=== PATIENT | female | born 1995 | race American Indian/Alaskan Native ===

== ENCOUNTER 2018-05-16 06:44 | Inpatient (IN) | payer MEDICAID ==
[2018-05-16 06:32] VITALS: BMI 33.6
[~2018-05-16 06:44] MED LIST: Lactated Ringer's 1,000 ML IV ONE
[2018-05-16 06:59] LABS: MEAN CELL VOLUME 78.6 fL (81.0-99.0); MEAN CORPUSCULAR HEMOGLOBIN 26.1 pg (27.0-31.0); MEAN CORPUSCULAR HGB CONC 33.2 g/dL (33.0-37.0); MEAN PLATELET VOLUME 8.9 fL (7.2-11.7); RBC 3.84 Mil/uL (3.80-5.20); RED CELL DISTRIBUTION WIDTH 13.9 % (11.5-14.5)
[2018-05-16] MEDS ORDERED: Sodium Citrate/Citric Acid 15 ml Sol PO ONE (07:20)
[2018-05-16] MEDS ORDERED: Morphine 1 mg/ml preservative-free Inj(Duramorph) ONE (07:22)
[2018-05-16 07:30] LABS: ALBUMIN 3.2 g/dL (3.5-5.0); ALT/SGPT 18 U/L (9-52); AST/SGOT 17 U/L (14-36); BLOOD UREA NITROGEN 3 mg/dL (7-17); CALCIUM 8.6 mg/dl (8.6-10.4); GFR NON-AFRICAN AMERICAN > 60
[2018-05-16] MEDS ORDERED: Lactated Ringer's 1,000 ML IV SCH (07:30)
[2018-05-16 07:35] LABS: SQUAMOUS EPITHIAL 2 /hpf (0-5); URINE BACTERIA MANY (<OCC); URINE BILIRUBIN NEGATIVE (NEGATIVE); URINE BLOOD NEGATIVE (NEGATIVE); URINE CLARITY Hazy (Clear); URINE COLOR Yellow (YELLOW); URINE GLUCOSE (UA) NORMAL (Normal); URINE LEUKOCYTE ESTERASE 2+ Leu/uL (Negative); URINE PROTEIN NEGATIVE (NEGATIVE); URINE UROBILINOGEN NORMAL mg/dL (0.2-1.0)
--- NOTE | 2018-05-16 07:37 | OBADHP ---
Datetime: 05/16/2018 07:22 IP Chief Complaint Other: H/O Herpes vaginalis Admit Comment, IP Provider: This is a private patient of Dr. Mayen 22 y.o. LMP 08/16/17, SALIMA 05/23/18 EGA 39 weeks for elective C/S: h/o herpes labialis. (+) AFM; denies LOF, VB, Ctx. care: Dr. 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 H/O HSV-2 diagnosed 10/2017 PMH: denies PSH: D_C Allergies: penicillin - hives Meds: PNV - last took 05/13/18 - once daily, valtrex - once daily Soc Hx: denies tobacco, illicit drug or EtOH use. Lives with a roomate. Unemployed. FOB not involv ed Fam hx: Mother alive 47 - HTN. Father alive 51 - no med issues. no known fam h/o cancer P.E.: as above. WD in NAD. Awake, alert, oriented to time, person and place Pleasant and cooerativ e Accompanied by her mother and her sister Assessment: 22 y.o. P0010, 39 weeks, H/O HSV-2 for elective primary C/S. Category 1 tracing. Patie nt last ate 1800 hours 05/15/18. Penicillin allergic. Clinically stable. Dr. Mayen to obtain all conse nts Plan: 1) Admit 2) NPO 3) ADmsision labs 4) Continuous EFM 5) [place] 6) Abdomnal prep and shave 7) Notify anesthesia 8) Notify peds 9) Clindamycin data collection interviewer 10) Patient data collection interviewer to O.R. - Dr. Mayen aware Pelvic Type - PN: Not Done Extremities - PN: Normal Abdomen - PN: Normal Back - PN: Normal Breast - PN: Normal Lungs - PN: Normal Heart - PN: Normal Thyroid - PN: Not Done Neurologic - PN: Normal HEENT - PN: Normal General - PN: Normal FHR - Baseline A Provider: 135 Contraction Comments Provider: infrequent Comments, ACOG Physical Exam: Abdomen: Gravid; Soft. Fundal height 37cm All other systems reviewed and are negative Gestation - Est Wks by US: 39.0 IP Hx Assessment: The History has been Reviewed and is Current Vital Signs Provider: Reviewed; Within Normal Limits IP Chief Complaint: Other NICHD Variability Prov Fetus A: Moderate 6-25bpm NICHD Accel Fetus A IP Provider: [id number] FHR Category Provider Fetus A: Category I NICHD Decel Fetus A IP Provider: None Dilatation, Provider: deferred Genitourinary Exam: Not Done DTRs - PN: Normal EGA AdmitDate IP: 39.0 IP Adm Impression: Term, intrauterine ; No Active Labor; Intact Membranes IP Admit Plan: Admit to unit; Initiate Section protocol
[2018-05-16] MEDS ORDERED: Sodium Citrate/Citric Acid 15 ml Sol ONE (07:50)
[2018-05-16] MEDS ORDERED: Oxytocin 20 units in LR 2,000 ML IV ONE (08:10)
[2018-05-16] MEDS ORDERED: Oxytocin 10 Units/ml Inj ONE (09:02)
[2018-05-16] MEDS: Simethicone 80 mg Chewtab PO SCH ×2 (10:05→21:38)
[2018-05-16] MEDS: Prenatal Multivit/Folic Acid/Iron Tab PO SCH (10:05)
[2018-05-16] MEDS: Clindamycin 600mg/50ml NS 600 MG/50 ML BAG IVPB SCH ×2 (14:00→21:35)
[2018-05-16] MEDS ORDERED: Clindamycin 600mg/50ml NS 600 MG/50 ML BAG IVPB ONE (14:51)
--- NOTE | 2018-05-16 19:54 | HP ---
HISTORY OF PRESENT ILLNESS: The patient is a 22-year-old female, 1, para 0 with due date of 05/23/2018 at 39 weeks by 8 days requesting an elective section, who is coming in for a lower segment section. The patient's initial visit was 09/05/2017. It has been essentially unremarkable. Medical history is unremarkable. ALLERGIC: SHE IS ALLERGIC PENICILLIN. SOCIAL HISTORY: She does not smoke or drink. Currently, she is not taking any calcium or airborne medications. CURRENT MEDICATIONS: Vitafol Ultra. PHYSICAL EXAMINATION: VITAL SIGNS: Blood pressure is 110/70, pulse is 72, respiratory rate is 20, temperature is 98.8. HEENT: Head, ear, nose and throat examination are within normal. CHEST: Clear. CARDIAC: Reveals normal heart sounds without any murmurs. LUNGS: Clear. BREASTS: Revealed no masses. PELVIC: Cervix is long, closed and vulva is normal. ADMITTING DIAGNOSIS: Intrauterine at 39 weeks, desires elective section. PLAN: To perform a lower segment section prior to being scheduled for the surgical procedure. The patient underwent an informed consent, discussion, and education session with me in the hospital lasting approximately 45 minutes during which time I explained to her in understandable terms the following: The nature and extent of the disease process, the nature and extent of the contemplated operation. I also explained to her the risks and potential complications of the operative procedures to include but not limited to infection, hemorrhage, deep vein thrombosis, atelectasis, pneumonia, pulmonary embolism, damage to the bladder, damage to the ureter, renal insufficiency, renal failure, wound infection, wound dehiscence, incisional hernia, keloid formation, damage to large and small intestines, damage to the inferior vena cava and aorta requiring extensive repair, anesthesia complications, electrolyte imbalance, possibility of , fluid overload, cerebral edema, low score, breathing difficulties in the baby and other complications are discussed but are not listed above. Also discussed with the patient anticipated benefits and results of this surgery including a conservative estimate of the successful outcome. I discussed with the patient by the operation would not accomplish. I informed the patient of the possibility of unanticipated pathology requiring a more extensive procedure. All the questions from the patient were encouraged, welcomed, and answered to her satisfaction. The patient's consent was obtained in the presence of her mother. Alvarez Rose MD
--- NOTE | 2018-05-16 21:32 | OP ---
PROCEDURE DATE: 05/16/2018 PREOPERATIVE DIAGNOSES: Intrauterine at 39 weeks, desires for elective section. POSTOPERATIVE DIAGNOSES: Intrauterine at 39 weeks, desires for elective section. PROCEDURE: Lower segment section. FINDINGS: A live female , Apgars 9 at one minute and 9 at five minutes, with normal tubes and ovaries. SURGEON: Alvarez Rose MD ANESTHESIA: Spinal. ESTIMATED BLOOD LOSS: 250 mL. COMPLICATIONS: Nil. INDICATION FOR THE PROCEDURE: After the risks, benefits, and alternatives of the planned procedure including but not limited to infection, hemorrhage, deep vein thrombosis, atelectasis, pneumonia, pulmonary embolism, damage to the bladder, damage to the ureter, renal insufficiency, renal failure, wound dehiscence, incisional hernia, keloid formation, damage to the large and small intestine, damage to the inferior vena cava and aorta requiring extensive repair, anesthesia complications, electrolyte imbalance, possibility of , fluid overload, cerebral edema, embolism, and other complications that were discussed but are not listed above had been explained to the patient, and all her questions answered. Informed consent was obtained. DESCRIPTION OF PROCEDURE: The patient was taken to the operating room in a stable condition. Under a suitable level of spinal analgesia, she was prepped and draped in a sterile fashion after having been placed in a supine position. The abdomen was entered through a Pfannenstiel type incision and carried through the subcutaneous tissues to the fascia. Fascia was opened transversely and dissected off the rectus abdominis musculature. The rectus abdominis musculature was then in the midline to remove the parietal peritoneum, which was entered sharply and incised superiorly and inferiorly. The bladder peritoneum was then excised in a curvilinear fashion and dissected off the lower uterine segment. The lower uterine segment was then entered through a curvilinear incision. The surgeon's fingers were inserted into the lower uterine segment to grasp the 's head, which was lying in a right occipital anterior position. The head was easily delivered. Nose and mouth were suctioned free of amniotic fluid, and the remainder of the infant was delivered without any difficulty. Cord was doubly clamped and cut and the baby was handed over to the pediatricians who were in attendance. Cord blood was collected. Cord was doubly clamped and cut, and the baby was handed over to the ear nose throat surgeon who were in attendance. Cord blood was collected. With Pitocin running, placenta was manually removed. The endometrium was then cleaned free of remaining membranes and clots. The uterine incision was closed in layers with the first layer being a running interlocking layer using #1 chromic and the second layer being used to imbricate the first layer. Hemostasis was good. The bladder peritoneum was then reapproximated using a running suture of 2-0 chromic. Peritoneal cavity was irrigated using copious amounts of saline. The saline was evacuated. The abdomen was then closed in layers with 0 chromic to the parietal peritoneum. Rectus muscles were reapproximated using interrupted sutures of 0 chromic. Fascia was reapproximated using two separate running sutures of 0 Vicryl to meet in the midline. Subcutaneous tissues were reapproximated using interrupted sutures of 0 plain, and the initial skin incision was reapproximated using 4-0 Vicryl in a subcuticular fashion. Estimated blood loss for the procedure was 250 mL. Pad, needle, and instrument counts were correct x2. There were no complications. Alvarez Rose MD
[2018-05-17] MEDS: Clindamycin 600mg/50ml NS 600 MG/50 ML BAG IVPB SCH (06:06)
[2018-05-17] MEDS ORDERED: Oxycodone/Acetaminophen 5/325 mg Tab PO PRN (07:30)
[2018-05-17 08:30] LABS: HEMOGLOBIN 8.9 g/dL (11.0-16.0); MEAN CELL VOLUME 78.8 fL (81.0-99.0); MEAN CORPUSCULAR HEMOGLOBIN 26.2 pg (27.0-31.0); MEAN CORPUSCULAR HGB CONC 33.3 g/dL (33.0-37.0); MEAN PLATELET VOLUME 9.1 fL (7.2-11.7); RBC 3.39 Mil/uL (3.80-5.20); RED CELL DISTRIBUTION WIDTH 14.2 % (11.5-14.5); WHITE BLOOD COUNT 9.3 K/uL (4.8-10.8)
[2018-05-17] MEDS: Oxycodone/Acetaminophen 5/325 mg Tab PO PRN ×4 (08:50→22:59)
[2018-05-17] MEDS: Simethicone 80 mg Chewtab PO SCH ×4 (09:02→21:45)
[2018-05-17] MEDS: Prenatal Multivit/Folic Acid/Iron Tab PO SCH (09:02)
[2018-05-18] MEDS: Oxycodone/Acetaminophen 5/325 mg Tab PO PRN ×2 (05:49→18:45)
--- NOTE | 2018-05-18 08:47 | PN ---
DATE: 05/18/2018 SUBJECTIVE: The patient has no complaints. She is afebrile. OBJECTIVE: VITAL SIGNS: Stable. ABDOMEN: Incision is clean and intact. EXTREMITIES: Nontender. CHEST: Clear. CARDIAC: Reveals normal heart sounds without any murmurs. LUNGS: Clear. ASSESSMENT AND PLAN: The patient is status post lower segment section day #2. Plan is to continue ambulating and advance diet as tolerated. Alvarez Rose MD
--- NOTE | 2018-05-18 09:09 | PN ---
DATE: 05/17/2018 SUBJECTIVE: The patient has no complaints. OBJECTIVE: VITAL SIGNS: Stable. She is afebrile. ABDOMEN: Soft. Incision is clean and intact. EXTREMITIES: Nontender with no evidence of DVT. CHEST: Clear. CARDIAC: Reveals normal heart sounds without any murmurs. LUNGS: Clear. ASSESSMENT: The patient is status post section day #1. PLAN: To ambulate the patient and advance diet as tolerated. Alvarez Rose MD
[2018-05-18] MEDS: Simethicone 80 mg Chewtab PO SCH ×4 (10:13→22:17)
[2018-05-18] MEDS: Prenatal Multivit/Folic Acid/Iron Tab PO SCH (10:14)
[2018-05-18 16:55] VITALS: O2SAT 98
[2018-05-19] MEDS: Oxycodone/Acetaminophen 5/325 mg Tab PO PRN ×2 (03:32→09:07)
[2018-05-19 08:10] VITALS: BP 111/68; PULSE 75; RESP 18; TEMP 98.2
[2018-05-19] MEDS: Prenatal Multivit/Folic Acid/Iron Tab PO SCH (09:06)
--- NOTE | 2018-05-19 10:24 | OBDCSUM ---
Datetime: 05/19/2018 09:13 Discharged to, Provider: Home Follow up at, Provider: Dr Mayen Disch Instr Activity: Normal activity; May Shower Disch Instr Diet: Regular Discharge Diet restrict Prov: none Discharge Instructions, Provider: Routine instructions given Discharge Diagnosis, Provider: Term Delivered Discharge Time: 05/19/2018 11:00 Follow up in weeks, Provider: 1 week Disch Referrals: None Contraception discussed, Prov: Yes Disch Activity Restrictions: No lifting; No driving; No sexual activity; Nothing in vagina - Interco urse, tampons, douche Discharge Comment, Provider: POD # 3 S/P C/S Pt seen and examined per dr. 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 Mayen Will f/up with Dr. Talbot in 1 week, per his request Continue PNV daily and Fe BID Advised to increase po water and Fiber in diet Contraception after Delivery: Undecided
--- NOTE | 2018-05-19 18:50 | OBPPN ---
Datetime: 05/19/2018 10:11 PP Pain Prov: Within normal limits PP Nausea Prov: Denies PP Flatus Prov: Yes PP BM Prov: No PP Breasts Prov: Not Done PP Heart Prov: Normal PP Lungs Prov: Normal PP Abdomen/Uterus Prov: Normal PP Lochia Prov: Normal PP Vulva/Perineum Prov: Normal PP CVA Tenderness Prov: Normal PP Extremities Prov: Normal PP C/S Incision Prov: Normal PP Progress Prov: Normal PP Comments Phys Exam Prov: Fundus firm and non-tender Incision clean, dry and intact PP Impression Prov: Normal progression PP Plan Prov: Discharge PP Progress Note Prov: POD # 3 S/P C/S Pt seen and examined per Dr. 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 Mayen IP PP Procedures: None Vital Signs Provider PP: Reviewed
== END 2018-05-19 11:50 | disposition home or self-care (01) | DRG 370 ==
LOC: C.4D 06:50 → C.4M 13:57
PROVIDERS: ADMIT Obstetrics & Gynecology Reproductive Endocrinology; ATTEND Obstetrics & Gynecology Reproductive Endocrinology
PROC: 10D00Z1 Extraction of Products of Conception, Low, Open Approach (ICD-10-PCS; principal; 2018-05-16)
DX: O98.52 Other viral diseases complicating childbirth (principal); O99.02 Anemia complicating childbirth; D62 Acute posthemorrhagic anemia; A60.04 Herpesviral vulvovaginitis; O23.43 Unspecified infection of urinary tract in pregnancy, third trimester; Z3A.39 39 weeks gestation of pregnancy; Z88.0 Allergy status to penicillin; Z37.0 Single live birth